=== PATIENT | male | born 1940 | race Caucasian/White ===

== ENCOUNTER 2018-11-17 14:05 | Inpatient (IN) ==
[2018-11-17] MEDS ORDERED: Mag Hydrox/Al Hydrox/Simeth 30 ML UDC PO PRN (19:59)
[2018-11-17] MEDS ORDERED: Ondansetron ODT 4 MG TAB.RAPDIS SL PRN (19:59)
[2018-11-18 06:06] LABS: Basophils % 0.4 %; Hematocrit 26.6 % (37.5-50.1); Hemoglobin 8.7 g/dL (12.9-16.9); Immature Granulocytes % 0.4 % (0-4); Lymphocytes % 31.6 %; Mean Corpuscular HGB Conc 32.7 g/dL (31.6-35.5); Mean Corpuscular Hemoglobin 31.8 pg (28.0-33.3); Mean Corpuscular Volume 97.1 fL (83.0-100.0); Mean Platelet Volume 10.5 fL (9.4-12.4); Monocytes % 6.8 %; Platelet Count 255 K/mcL (140-400); Red Blood Count 2.74 M/mcL (4.19-5.50); Red Cell Distribution Width 14.9 % (11.5-14.5); Segmented Neutrophils % 53.8 %; White Blood Count 10.1 K/mcL (4.3-11.1)
[2018-11-18 06:07] LABS: Eosinophils # 0.7 K/mcL (0.0-0.6); Lymphocytes # 3.2 K/mcL (0.6-4.6); Monocytes # 0.7 K/mcL (0.0-1.3); Neutrophils # 5.4 K/mcL (1.6-8.9)
[2018-11-18 06:14] LABS: Alanine Aminotransferase 49 Units/L (7-52); Albumin 2.8 g/dL (3.5-5.7); Albumin/Globulin Ratio 1.4 (1.1-2.2); Alkaline Phosphatase 66 Units/L (34-104); Aspartate Amino Transferase 33 Units/L (13-39); BUN/Creatinine Ratio 46 (6-26); Bilirubin,Total 0.4 mg/dL (0.3-1.0); Blood Urea Nitrogen 38 mg/dL (8-23); Calcium 8.2 mg/dL (8.6-10.3); Carbon Dioxide 28 mEq/L (23-29); Chloride 107 mEq/L (98-107); Glucose 104 mg/dL (70-105); Magnesium 1.4 mg/dL (1.6-2.6); Osmolality,Calculated 295 (280-300); Potassium 4.3 mEq/L (3.5-5.1); Sodium 138 mEq/L (136-145); Total Protein 4.8 g/dL (6.4-8.9); eGFR For African Americans > 60 (> 60); eGFR For Non-African Americans > 60 (> 60)
--- NOTE | 2018-11-18 08:40 | Internal Med History&Physical ---
Date of Encounter: 11/18/18 Time of Encounter: 08:24 Assessment and Plan (1) COPD (chronic obstructive pulmonary disease) Current visit: Yes Status: Acute Controlled with inhaled meds. Monitor. Qualifiers: COPD type: unspecified COPD Qualified Code(s): J44.9 - Chronic obstructive pulmonary disease, unspecified (2) H/O: CVA (cerebrovascular accident) Current visit: Yes Status: Chronic No new neurological deficits. Assist with ADLs as necessary. CVA was in 2011. (3) Hypothyroidism Current visit: Yes Status: Acute Controlled with levothyroxine. Monitor TSH. Qualifiers: Hypothyroidism type: unspecified Qualified Code(s): E03.9 - Hypothyroidism, unspecified (4) Severe protein-calorie malnutrition Current visit: Yes Status: Acute Consult dietitian. (5) Weakness Current visit: No Status: Acute PT and OT to eval and treat. Will follow progress. Internal Medicine - H&P: HPI Admitted From: Hospital to Hospital Transfer Plans for Post Hospital Care: Home History of present illness: Mr. Olivier is a 77 year old male admitted to inpatient rehab from [facility] in [place]. Was originally transferred from [place] emergency room to [place] for management of a K I. Has had a 3 month decline eating or drinking much and being more fatigued. was bedbound. found to be severly dehydrated. Past medical history includes COPD, CVA in 2011, hypertension, hypothyroidism, PVD, carotid stenosis, ischemic cardiomyopathy. hx of alcoholism(quit in 2011) and smoking. lives at home alone with , son unable to provide care. has had recent hospice consult. currently lying in bed, cooperative. denies fever, chills, NVD, SOB and chest pain. Past Med Surg Social Fam HX - Past Medical History Medical history: cardiomyopathy, COPD, CVA, hypertension, thyroid disease Additional medical history: hyperlipidemia. Alcoholism, quit 2011 Psychiatric history: no psych history - Past Surgical History Surgical History: carotid endarterectomy Additional surgical history: hernia surgery 1974 - Social History Smoking Status: Current every day smoker Smokeless Tobacco Status: No Alcohol use: occasionally Drug use: none - Family History Father History Unknown: Yes Name: sonia olivier Internal Medicine - H&P: Meds Albuterol Sulfate [Ventolin Hfa] 2 puff IH Q4H PRN 11/09/18 [History] Fluticasone Propionate Nasal [Flonase] 1 spray NS DAILY 11/09/18 [History] Levothyroxine Sodium [Levoxyl] 175 mcg PO QAM 11/09/18 [History] Tiotropium [Spiriva] 18 mcg IH 0700 11/09/18 [History] Acetaminophen [Tylenol] 650 mg PO Q4H PRN 11/17/18 [History] Aspirin 81 mg PO DAILY #30 tab.chew 11/17/18 [Rx] Enoxaparin [Lovenox] 40 mg SQ DAILY 11/17/18 [History] Mag Hydrox/Al Hydrox/Simeth [Maalox] 30 ml PO Q6HR PRN 11/17/18 [History] Megestrol Acetate [Megace] 40 mg PO DAILY tablet 11/17/18 [Rx] Melatonin/Pyridoxine HCl (B6) [Melatonin 3 mg Tablet] 3 mg PO HS PRN 11/17/18 [History] Ondansetron ODT [Zofran ODT] 4 mg SL Q6HR PRN 11/17/18 [History] Polyethylene Glycol 3350 [MiraLAX] 17 gm PO DAILY PRN 11/17/18 [History] Allergy/AdvReac Type Severity Reaction Status Date / Time No Known Allergies Allergy Verified 11/09/18 17:59 All Systems PM: A 10-system review of systems was performed and is negative for pertinent findings except as documented above in the HPI. - Constitutional Constitutional: no chills, no fever(s), no night sweats - EENT Eyes: no change in vision, no discharge, no pain, no photophobia Ears: no ear discharge, no ear pain, no tinnitus Nose, mouth and throat: no dysphagia, no nasal discharge, no neck pain, no sore throat - Cardiovascular Cardiovascular ROS IM: no chest pain, no diaphoresis, no dyspnea, no lightheadedness, no palpitations, no syncope - Respiratory Respiratory: no cough, no dyspnea, no wheezing, no excessive phlegm production - Gastrointestinal Gastrointestinal: no abdominal pain, no diarrhea, no hematemesis, no hematochezia, no melena, no nausea, no vomiting - Musculoskeletal Musculoskeletal ROS IM: no numbness, no tingling - Integumentary Integumentary IM: no rash, no unusual bruising - Neurological Neurological ROS: no confusion, no convulsions, no focal weakness, no numbness, no tingling, no tremor(s) - Hematologic/Lymphatic Hematologic/Lymphatic: no easy bruising - Constitutional Vitals: Temp Pulse Resp BP Pulse Ox 98.2 F 86 15 132/68 95 11/18/18 07:44 11/18/18 07:44 11/18/18 07:44 11/18/18 07:44 11/18/18 07:44 General appearance: Present: cooperative, A&O X 3, pleasant, no acute distress, answers questions appropriately - Head Head exam: Present: atraumatic, normocephalic - Eye Eye exam: Present: PERRL, conjuntiva pink, sclera anicteric Pupils: Present: PERRL - Neck Neck exam general surgery: Present: supple, trachea midline. Absent: lymphadenopathy - Respiratory Respiratory exam: Present: CTAB. Absent: accessory muscle use, rales, rhonchi, wheezes - Cardiovascular Cardiovascular exam: Present: RRR, +S1, +S2. Absent: diastolic murmur, gallop, rubs, systolic murmur - GI/Abdominal GI/Abdominal exam: Present: normal bowel sounds, soft, no peritoneal signs. Absent: distended, tenderness - Extremities Exam Extremities exam: Present: warm, radial pulses palpable and symmetrical. Absent: calf tenderness, cyanotic, pedal edema Additional comments: general weakness. - Neurological Exam Neurological exam: Present: CN II-XII intact, oriented X3, no focal deficits. Absent: pronater drift, facial droop, speech deficit - Skin Skin exam: Present: dry, intact Internal Med - H&P Results - Labs CBC & Chem 7: 11/18/18 05:25 11/18/18 05:25 Labs: Short CBC 11/18/18 Range/Units 05:25 WBC 10.1 (4.3-11.1) K/mcL Hgb 8.7 L (12.9-16.9) g/dL Hct 26.6 L (37.5-50.1) % Plt Count 255 (140-400) K/mcL Neutrophils # 5.4 (1.6-8.9) K/mcL BMP 11/18/18 05:25 Sodium 138 Potassium 4.3 Chloride 107 Carbon Dioxide 28 BUN 38 H Creatinine 0.82 Glucose 104 Calcium 8.2 L Liver Function 11/18/18 Range/Units 05:25 Total Bilirubin 0.4 (0.3-1.0) mg/dL AST 33 (13-39) Units/L ALT 49 (7-52) Units/L Alkaline Phosphatase 66 (34-104) Units/L Albumin 2.8 L (3.5-5.7) g/dL
[2018-11-18] MEDS: Aspirin 81 MG TAB.CHEW PO SCH (09:27)
[2018-11-18] MEDS: *HR* Enoxaparin 40 MG/0.4 ML SYRINGE SQ SCH (09:27)
[2018-11-18] MEDS: Fluticasone Propionate Nasal 50 MCG/SPRAY BOTTLE NS SCH (09:27)
[2018-11-18 11:31] LABS: Bilirubin,Urine Negative (Negative); Blood,Urine Trace-intact (Negative); Clarity,Urine Clear (Clear); Color,Urine Yellow (Yellow); Glucose,Urine (UA) Normal (Normal); Ketones,Urine Negative (Negative); Leukocyte Esterase,Urine Trace (Negative); Nitrite,Urine Negative (Negative); PH,Urine 8.5 pH Units (5.0-8.0); Protein,Urine Negative (Neg-Trace); Specific Gravity,Urine 1.015 (1.010-1.025); Urobilinogen,Urine Normal (Normal)
[2018-11-18 11:36] LABS: RBC,Urine 0-3 per hpf (0-3)
[2018-11-18 11:37] LABS: Bacteria,Urine Few per hpf (None-Few); WBC,Urine 0-3 per hpf (0-3)
[2018-11-18] MEDS: Tiotropium 18 MCG inhalation IH SCH (11:44)
[2018-11-19] MEDS: Aspirin 81 MG TAB.CHEW PO SCH (07:58)
[2018-11-19] MEDS: *HR* Enoxaparin 40 MG/0.4 ML SYRINGE SQ SCH (07:58)
[2018-11-19] MEDS: Fluticasone Propionate Nasal 50 MCG/SPRAY BOTTLE NS SCH (07:59)
[2018-11-19] MEDS: Tiotropium 18 MCG inhalation IH SCH (09:35)
--- NOTE | 2018-11-19 12:02 | Internal Med Progress Note ---
Date of Encounter: 11/19/18 Time of Encounter: 12:00 - Assessment and plan (1) COPD (chronic obstructive pulmonary disease) Current Visit: Yes Status: Acute Assessment and plan: No acute issues. Patient denies any dyspnea but does continue with productive cough and noted fine rales . Remains afebrile. We will continue with current medications and bronchodilators. Patient continue with therapy Qualifiers: COPD type: unspecified COPD Qualified Code(s): J44.9 - Chronic obstructive pulmonary disease, unspecified (2) Cardiomyopathy Current Visit: Yes Status: Chronic Assessment and plan: No acute issues. Patient continues with fine basilar rales, but denies any chest discomforts or palpitations. No peripheral edema noted. Denies any dyspnea during therapy. We will continue with current medications and continue with therapy Qualifiers: Cardiomyopathy type: unspecified Qualified Code(s): I42.9 - Cardiomyopathy, unspecified (3) Dementia Current Visit: Yes Status: Chronic Assessment and plan: No acute issues. Patient has been compliant with care with no behavior issues reported per nursing. Patient appears appropriate during conversation during exam. Qualifiers: Dementia type: unspecified type Dementia behavioral disturbance: without behavioral disturbance Qualified Code(s): F03.90 - Unspecified dementia without behavioral disturbance (4) Acute kidney failure Current Visit: Yes Status: Acute Assessment and plan: Patient noted to have decreased urine output per INR was. Also with hypomagnesemia with today's labs showing a 1.4. Most recent creatinine was at 0.82. Will evaluate patient for possible gentle fluid replacement with electrolytes. Monitor through serial labs Qualifiers: Acute renal failure type: with acute tubular necrosis Qualified Code(s): N17.0 - Acute kidney failure with tubular necrosis - Time Spent With Patient less than 15 minutes - Subjective Interval history: Patient appears relaxed and currently denies any discomforts or shortness of breath. Denies any chest discomforts or palpitations. Patient does state he has a cough with thick bhakta sputum been received. Patient also states that he continues to be able to feel the mass to the right side of his neck which he states he was told was benign. No lymphedema or tenderness. Patient with a history of dementia but has since her to be compliant with care and no behavior issues reported per nursing. - Constitutional Vitals: Temp Pulse Resp BP Pulse Ox 98.3 F 81 20 94/52 98 11/19/18 07:36 11/19/18 07:36 11/19/18 09:37 11/19/18 07:36 11/19/18 09:37 General appearance: Present: cooperative, A&O X 3, pleasant, no acute distress, answers questions appropriately - Head Head exam: Present: atraumatic, normocephalic - Eye Eye exam: Present: PERRL, conjuntiva pink, sclera anicteric Pupils: Present: PERRL - Neck Neck exam general surgery: Present: supple, trachea midline. Absent: lymphadenopathy - Respiratory Respiratory exam: Present: decreased breath sounds, CTAB. Absent: accessory muscle use, rales, rhonchi, wheezes Additional comments: Lungs are clear throughout upper begum with fine posterior bibasilar rales. Respiratory effort appears relaxed. Productive cough with thick bhakta sputum received. - Cardiovascular Cardiovascular exam: Present: RRR, +S1, +S2. Absent: diastolic murmur, gallop, rubs, systolic murmur - GI/Abdominal GI/Abdominal exam: Present: normal bowel sounds, soft, no peritoneal signs. Absent: distended, tenderness - Extremities Exam Extremities exam: Present: warm, radial pulses palpable and symmetrical. Absent: calf tenderness, cyanotic, pedal edema - Neurological Exam Neurological exam: Present: CN II-XII intact, oriented X3, no focal deficits. Absent: pronater drift, facial droop, speech deficit - Skin Skin exam: Present: dry, intact Internal Medicine: Result - Labs CBC & Chem 7: 11/18/18 05:25 11/18/18 05:25 Consult Discharge Plan - Plan Referrals: Lucy Vazquez [Primary Care Provider] -
[2018-11-19] MEDS: Acetaminophen 325 MG TABLET PO PRN (21:34)
[2018-11-20] MEDS: *HR* Enoxaparin 40 MG/0.4 ML SYRINGE SQ SCH (08:31)
[2018-11-20] MEDS: Aspirin 81 MG TAB.CHEW PO SCH (08:31)
[2018-11-20] MEDS: Fluticasone Propionate Nasal 50 MCG/SPRAY BOTTLE NS SCH (08:33)
[2018-11-20] MEDS: Tiotropium 18 MCG inhalation IH SCH (10:17)
--- NOTE | 2018-11-20 12:18 | Internal Med Progress Note ---
Date of Encounter: 11/20/18 Time of Encounter: 12:15 - Assessment and plan (1) COPD (chronic obstructive pulmonary disease) Current Visit: Yes Status: Acute Assessment and plan: No acute issues. Patient denies any dyspnea but does continue with productive cough and noted fine rales bibasilar. Remains afebrile. We will continue with current medications and bronchodilators. Patient continue with therapy Qualifiers: COPD type: unspecified COPD Qualified Code(s): J44.9 - Chronic obstructive pulmonary disease, unspecified (2) Cardiomyopathy Current Visit: Yes Status: Chronic Assessment and plan: No acute issues. Patient continues with fine basilar rales, but denies any chest discomforts or palpitations. No peripheral edema noted. Denies any dyspnea during therapy. We will continue with current medications and continue with therapy Qualifiers: Cardiomyopathy type: unspecified Qualified Code(s): I42.9 - Cardiomyopathy, unspecified (3) Dementia Current Visit: Yes Status: Chronic Assessment and plan: No acute issues. Patient has been compliant with care with no behavior issues reported per nursing. Patient appears appropriate during conversation during exam. Qualifiers: Dementia type: unspecified type Dementia behavioral disturbance: without be havioral disturbance Qualified Code(s): F03.90 - Unspecified dementia without behavioral disturbance (4) Acute kidney failure Current Visit: Yes Status: Acute Assessment and plan: Most recent creatinine was at 0.82. Monitor through serial labs Qualifiers: Acute renal failure type: with acute tubular necrosis Qualified Code(s): N17.0 - Acute kidney failure with tubular necrosis - Time Spent With Patient less than 15 minutes - Subjective Interval history: Patient appears relaxed and currently denies any discomforts or shortness of breath. Denies any chest discomforts or palpitations. Patient does state he has a cough with thick bhakta sputum been received. Patient also states that he continues to be able to feel the mass to the right side of his neck. Call received from oncology states that patient's mass biopsy was benign. No lymphedema or tenderness. Patient with a history of dementia, but no reports of behavior issues from nursing. - Constitutional Vitals: Temp Pulse Resp BP Pulse Ox 98.5 F 77 20 109/65 97 11/20/18 07:20 11/20/18 07:20 11/20/18 10:13 11/20/18 07:20 11/20/18 10:13 General appearance: Present: cooperative, A&O X 3, pleasant, no acute distress, answers questions appropriately - Head Head exam: Present: atraumatic, normocephalic Additional comments: Slight firmness noted to right upper neck during palpation. - Eye Eye exam: Present: PERRL, conjuntiva pink, sclera anicteric Pupils: Present: PERRL - Neck Neck exam general surgery: Present: supple, trachea midline. Absent: lymphadenopathy - Respiratory Respiratory exam: Present: decreased breath sounds, CTAB, rales. Absent: accessory muscle use, rhonchi, wheezes Additional comments: Lungs are clear throughout upper begum with fine basilar rales noted. Respiratory effort appears relaxed while at rest. No productive cough noted during exam. - Cardiovascular Cardiovascular exam: Present: RRR, +S1, +S2. Absent: diastolic murmur, gallop, rubs, systolic murmur - GI/Abdominal GI/Abdominal exam: Present: normal bowel sounds, soft, no peritoneal signs. Absent: distended, tenderness - Extremities Exam Extremities exam: Present: warm, radial pulses palpable and symmetrical. Absent: calf tenderness, cyanotic, pedal edema - Neurological Exam Neurological exam: Present: CN II-XII intact, oriented X3, no focal deficits. Absent: pronater drift, facial droop, speech deficit - Skin Skin exam: Present: dry, intact Internal Medicine: Result - Labs CBC & Chem 7: 11/18/18 05:25 11/18/18 05:25 Consult Discharge Plan - Plan Referrals: Lucy Vazquez [Primary Care Provider] -
[2018-11-20] MEDS: Acetaminophen 325 MG TABLET PO PRN (21:20)
[2018-11-20] MEDS: Melatonin 3 MG TABLET PO PRN (21:21)
[2018-11-21 04:46] LABS: Hemoglobin 8.2 g/dL (12.9-16.9); Mean Corpuscular HGB Conc 32.8 g/dL (31.6-35.5); Mean Corpuscular Hemoglobin 31.7 pg (28.0-33.3); Mean Corpuscular Volume 96.5 fL (83.0-100.0); Mean Platelet Volume 9.4 fL (9.4-12.4); Platelet Count 285 K/mcL (140-400); Red Blood Count 2.59 M/mcL (4.19-5.50); Red Cell Distribution Width 14.9 % (11.5-14.5); White Blood Count 9.5 K/mcL (4.3-11.1)
[2018-11-21 05:06] LABS: Alanine Aminotransferase 45 Units/L (7-52); Albumin 2.8 g/dL (3.5-5.7); Albumin/Globulin Ratio 1.6 (1.1-2.2); Alkaline Phosphatase 58 Units/L (34-104); Aspartate Amino Transferase 27 Units/L (13-39); BUN/Creatinine Ratio 50 (6-26); Bilirubin,Total 0.3 mg/dL (0.3-1.0); Blood Urea Nitrogen 41 mg/dL (8-23); Calcium 8.1 mg/dL (8.6-10.3); Carbon Dioxide 25 mEq/L (23-29); Chloride 108 mEq/L (98-107); Globulin 1.8 g/dL (2.4-3.5); Glucose 101 mg/dL (70-105); Magnesium 1.7 mg/dL (1.6-2.6); Osmolality,Calculated 296 (280-300); Potassium 4.5 mEq/L (3.5-5.1); Sodium 138 mEq/L (136-145); Total Protein 4.6 g/dL (6.4-8.9); eGFR For African Americans > 60 (> 60); eGFR For Non-African Americans > 60 (> 60)
[2018-11-21] MEDS: *HR* Enoxaparin 40 MG/0.4 ML SYRINGE SQ SCH (09:30)
[2018-11-21] MEDS: Aspirin 81 MG TAB.CHEW PO SCH (09:31)
[2018-11-21] MEDS: Fluticasone Propionate Nasal 50 MCG/SPRAY BOTTLE NS SCH (09:32)
[2018-11-21] MEDS: Tiotropium 18 MCG inhalation IH SCH (10:02)
--- NOTE | 2018-11-21 11:29 | Internal Med Progress Note ---
Date of Encounter: 11/21/18 Time of Encounter: 11:23 - Assessment and plan (1) COPD (chronic obstructive pulmonary disease) Current Visit: Yes Status: Acute Assessment and plan: Stable. Continue inhaled meds. Qualifiers: COPD type: unspecified COPD Qualified Code(s): J44.9 - Chronic obstructive pulmonary disease, unspecified (2) H/O: CVA (cerebrovascular accident) Current Visit: Yes Status: Chronic Assessment and plan: No new neurological deficits. (3) Severe protein-calorie malnutrition Current Visit: Yes Status: Acute (4) Weakness Current Visit: No Status: Acute - Time Spent With Patient less than 15 minutes - Subjective Interval history: Sitting in wheelchair, Participating well with therapy. Denies complaints. Denies fever, chills, nausea vomiting or diarrhea. Denies shortness of breath or chest pain. Appetite improving. Maintaining hydration. Slight redness and edema to right lower extremity. States it itches. Denies pain. - Constitutional Vitals: Temp Pulse Resp BP Pulse Ox 97.9 F 70 16 90/49 96 11/21/18 08:00 11/21/18 08:00 11/21/18 10:04 11/21/18 08:00 11/21/18 10:04 General appearance: Present: cooperative, A&O X 3, pleasant, no acute distress, answers questions appropriately - Head Head exam: Present: atraumatic, normocephalic - Eye Eye exam: Present: PERRL, conjuntiva pink, sclera anicteric Pupils: Present: PERRL - Neck Neck exam general surgery: Present: supple, trachea midline. Absent: lym phadenopathy - Respiratory Respiratory exam: Present: CTAB. Absent: accessory muscle use, rales, rhonchi, wheezes - Cardiovascular Cardiovascular exam: Present: RRR, +S1, +S2. Absent: diastolic murmur, gallop, rubs, systolic murmur - GI/Abdominal GI/Abdominal exam: Present: normal bowel sounds, soft, no peritoneal signs. Absent: distended, tenderness - Extremities Exam Extremities exam: Present: warm, radial pulses palpable and symmetrical. Absent: calf tenderness, cyanotic, pedal edema Additional comments: Right lower extremity, slight non-pitting edema with redness. No warmth to touch. - Neurological Exam Neurological exam: Present: CN II-XII intact, oriented X3, no focal deficits. Absent: pronater drift, facial droop, speech deficit - Skin Skin exam: Present: dry, intact Internal Medicine: Result - Labs CBC & Chem 7: 11/21/18 04:29 11/21/18 04:29 Labs: Short CBC 11/21/18 Range/Units 04:29 WBC 9.5 (4.3-11.1) K/mcL Hgb 8.2 L (12.9-16.9) g/dL Hct 25.0 L (37.5-50.1) % Plt Count 285 (140-400) K/mcL BMP 11/21/18 04:29 Sodium 138 Potassium 4.5 Chloride 108 H Carbon Dioxide 25 BUN 41 H Creatinine 0.82 Glucose 101 Calcium 8.1 L Liver Function 11/21/18 Range/Units 04:29 Total Bilirubin 0.3 (0.3-1.0) mg/dL AST 27 (13-39) Units/L ALT 45 (7-52) Units/L Alkaline Phosphatase 58 (34-104) Units/L Albumin 2.8 L (3.5-5.7) g/dL Consult Discharge Plan - Plan Referrals: Lucy Vazquez [Primary Care Provider] -
[2018-11-22] MEDS: Fluticasone Propionate Nasal 50 MCG/SPRAY BOTTLE NS SCH (08:52)
[2018-11-22] MEDS: *HR* Enoxaparin 40 MG/0.4 ML SYRINGE SQ SCH (08:52)
[2018-11-22] MEDS: Aspirin 81 MG TAB.CHEW PO SCH (08:52)
[2018-11-22] MEDS: Tiotropium 18 MCG inhalation IH SCH (08:55)
--- NOTE | 2018-11-22 09:41 | Internal Med Progress Note ---
Date of Encounter: 11/22/18 Time of Encounter: 09:41 - Assessment and plan (1) Weakness Current Visit: No Status: Acute Assessment and plan: Patient is slowly improving. Therapies continued. (2) Cardiomyopathy Current Visit: Yes Status: Chronic Assessment and plan: Clinically stable withacute signs of heart failure. Qualifiers: Cardiomyopathy type: unspecified Qualified Code(s): I42.9 - Cardiomyopathy, unspecified (3) Hypothyroidism Current Visit: Yes Status: Acute Assessment and plan: Clinically stable. Qualifiers: Hypothyroidism type: unspecified Qualified Code(s): E03.9 - Hypothyroidism, unspecified (4) COPD (chronic obstructive pulmonary disease) Current Visit: Yes Status: Acute Assessment and plan: No acute findings. Qualifiers: COPD type: unspecified COPD Qualified Code(s): J44.9 - Chronic obstructive pulmonary disease, unspecified (5) Dementia Current Visit: Yes Status: Chronic Assessment and plan: Seems alert and oriented 3, today. Qualifiers: Dementia type: unspecified type Dementia behavioral disturbance: without behavioral disturbance Qualified Code(s): F03.90 - Unspecified dementia without behavioral disturbance - Subjective Interval history: Patient is without complaint. He is not feeling too tired, today. Bowels are moving adequately. He continued urinate frequently. No burning or fever or chills. Patient has no complaint of chest discomfort, dyspnea, orthopnea, palpitations, nausea or vomiting, constipation or diarrhea, other changes in bowel habits, difficulty with urination, rash or itching, or other new complaints, except as mentioned above. Review of systems is otherwise negative. I discussed management of patient's care with nursing staff. - Constitutional Vitals: Temp Pulse Resp BP Pulse Ox 98.4 F 72 18 148/81 100 11/22/18 06:54 11/22/18 06:54 11/22/18 06:54 11/22/18 06:54 11/22/18 06:54 Exam: Examination: (Except as mentioned above): General: In no apparent distress. Alert and oriented 3. Nondiaphoretic. Head: Atraumatic and normocephalic. Respiratory: No use of accessory muscles. Lungs are clear throughout. Normal airflow. Cardiovascular: Regular rate and rhythm without murmur appreciated. Abdomen: Bowel sounds are normal. No hepatosplenomegaly mass or tenderness appreciated. Obese and therefore difficult to palpate deeply. Patient is examined upright in chair and this also limits exam. Extremities: No cyanosis clubbing or change in edema. Skin: Warm and non-diaphoretic with no new lesions noted. Internal Medicine: Result - Labs CBC & Chem 7: 11/21/18 04:29 11/21/18 04:29 Consult Discharge Plan - Plan Referrals: Lucy Vazquez [Primary Care Provider] - Guilherme Sheth MD [Partnered Physician] - 12/12/18 11:15 am (follow-up visit. suspects multiple myeloma)
[2018-11-22] MEDS: Melatonin 3 MG TABLET PO PRN (20:36)
[2018-11-23] MEDS: *HR* Enoxaparin 40 MG/0.4 ML SYRINGE SQ SCH (08:09)
[2018-11-23] MEDS: Aspirin 81 MG TAB.CHEW PO SCH (08:09)
[2018-11-23] MEDS: Tiotropium 18 MCG inhalation IH SCH (08:09)
[2018-11-23] MEDS: Fluticasone Propionate Nasal 50 MCG/SPRAY BOTTLE NS SCH (08:11)
--- NOTE | 2018-11-23 13:40 | Internal Med Progress Note ---
Date of Encounter: 11/23/18 Time of Encounter: 13:38 - Assessment and plan (1) Weakness Current Visit: No Status: Acute Assessment and plan: Patient will continue with therapy, as planned. (2) Cardiomyopathy Current Visit: Yes Status: Chronic Assessment and plan: No findings of heart failure. Qualifiers: Cardiomyopathy type: unspecified Qualified Code(s): I42.9 - Cardiomyopathy, unspecified (3) Hypothyroidism Current Visit: Yes Status: Acute Assessment and plan: Stable. Qualifiers: Hypothyroidism type: unspecified Qualified Code(s): E03.9 - Hypothyroidism, unspecified (4) COPD (chronic obstructive pulmonary disease) Current Visit: Yes Status: Acute Assessment and plan: Clinically stable. Qualifiers: COPD type: unspecified COPD Qualified Code(s): J44.9 - Chronic obstructive pulmonary disease, unspecified (5) Dementia Current Visit: Yes Status: Chronic Assessment and plan: This seems to be very mild. Qualifiers: Dementia type: unspecified type Dementia behavioral disturbance: without behavioral disturbance Qualified Code(s): F03.90 - Unspecified dementia without behavioral disturbance (6) Paraproteinemia Current Visit: Yes Status: Acute Assessment and plan: Follow-up is planned for 12/12/2017 with hematology. (7) Constipation by delayed colonic transit Current Visit: Yes Status: Acute Assessment and plan: We will continue laxatives and suppositories. - Subjective Interval history: Patient is feeling bloated and constipated. He denies abdominal pain or upset stomach, reflux, etc. He has not responded to laxatives and we discussed the possible use of a suppository to which he agrees. Patient has no complaint of chest discomfort, dyspnea, orthopnea, palpitations, nausea or vomiting, constipation or diarrhea, other changes in bowel habits, difficulty with urination, rash or itching, or other new complaints, except as mentioned above. Review of systems is otherwise negative. I discussed management of patient's care with nursing staff. - Constitutional Vitals: Temp Pulse Resp BP Pulse Ox 98.0 F 71 16 120/70 100 11/23/18 07:29 11/23/18 07:29 11/23/18 07:29 11/23/18 07:29 11/23/18 07:29 Exam: Examination: (Except as mentioned above): General: In no apparent distress. Alert and oriented 3. Nondiaphoretic. Head: Atraumatic and normocephalic. Respiratory: No use of accessory muscles. Lungs are clear throughout. Normal airflow. Cardiovascular: Regular rate and rhythm without murmur appreciated. Abdomen: Bowel sounds are normal. No hepatosplenomegaly mass or tenderness appreciated. Obese and therefore difficult to palpate deeply. Patient is examined upright in chair and this also limits exam. Extremities: No cyanosis clubbing or change in edema. Skin: Warm and non-diaphoretic with no new lesions noted. Internal Medicine: Result - Labs CBC & Chem 7: 11/21/18 04:29 11/21/18 04:29 Consult Discharge Plan - Plan Referrals: Lucy Vazquez [Primary Care Provider] - Guilherme Sheth MD [Partnered Physician] - 12/12/18 11:15 am (follow-up visit. suspects multiple myeloma)
[2018-11-23] MEDS ORDERED: Bisacodyl 10 MG RECTAL SUPPOSITORY RC ONE (14:50)
[2018-11-23] MEDS: Melatonin 3 MG TABLET PO PRN (20:00)
[2018-11-24] MEDS: Fluticasone Propionate Nasal 50 MCG/SPRAY BOTTLE NS SCH (09:31)
[2018-11-24] MEDS: *HR* Enoxaparin 40 MG/0.4 ML SYRINGE SQ SCH (09:32)
[2018-11-24] MEDS: Aspirin 81 MG TAB.CHEW PO SCH (09:33)
--- NOTE | 2018-11-24 09:59 | Internal Med Progress Note ---
Date of Encounter: 11/24/18 Time of Encounter: 09:57 - Assessment and plan (1) COPD (chronic obstructive pulmonary disease) Current Visit: Yes Status: Acute Assessment and plan: No acute issues. Patient denies any dyspnea but does continue with productive cough and noted fine rales bibasilar. Remains afebrile. We will continue with current medications and bronchodilators. Patient continue with therapy Qualifiers: COPD type: unspecified COPD Qualified Code(s): J44.9 - Chronic obstructive pulmonary disease, unspecified (2) Cardiomyopathy Current Visit: Yes Status: Chronic Assessment and plan: No acute issues. Patient continues with fine basilar rales, but denies any chest discomforts or palpitations. No peripheral edema noted. Denies any dyspnea during therapy. We will continue with current medications and continue with therapy Qualifiers: Cardiomyopathy type: unspecified Qualified Code(s): I42.9 - Cardiomyopathy, unspecified (3) Dementia Current Visit: Yes Status: Chronic Assessment and plan: No acute issues. Patient has been compliant with care with no behavior issues reported per nursing. Patient appears appropriate during conversation during exam. Continued reports of nocturnal confusion, but no behavior issues reported Qualifiers: Dementia type: unspecified type Dementia behavioral disturbance: without behavioral disturbance Qualified Code(s): F03.90 - Unspecified dementia without behavioral disturbance (4) Acute kidney failure Current Visit: Yes Status: Acute Assessment and plan: Most recent creatinine was at 0.82. Monitor through serial labs Qualifiers: Acute renal failure type: with acute tubular necrosis Qualified Code(s): N17.0 - Acute kidney failure with tubular necrosis - Time Spent With Patient less than 15 minutes - Subjective Interval history: Patient appears relaxed and currently denies any discomforts or shortness of breath. Denies any chest discomforts or palpitations. Patient with a history of dementia, but no reports of behavior issues from nursing. Nursing states the patient at times has awakened confused at night, but easily redirected - Constitutional Vitals: Temp Pulse Resp BP Pulse Ox 98.3 F 73 16 127/66 98 11/24/18 07:00 11/24/18 07:00 11/24/18 07:00 11/24/18 07:00 11/24/18 07:00 General appearance: Present: cooperative, A&O X 3, pleasant, no acute distress, answers questions appropriately - Head Head exam: Present: atraumatic, normocephalic - Eye Eye exam: Present: PERRL, conjuntiva pink, sclera anicteric Pupils: Present: PERRL - Neck Neck exam general surgery: Present: supple, trachea midline. Absent: lymphadenopathy - Respiratory Respiratory exam: Present: decreased breath sounds, CTAB. Absent: accessory muscle use, rales, rhonchi, wheezes - Cardiovascular Cardiovascular exam: Present: RRR, +S1, +S2, systolic murmur. Absent: diastolic murmur, gallop, rubs - GI/Abdominal GI/Abdominal exam: Present: normal bowel sounds, soft, no peritoneal signs. Absent: distended, tenderness - Extremities Exam Extremities exam: Present: pedal edema, warm, radial pulses palpable and symmetrical. Absent: calf tenderness, cyanotic - Neurological Exam Neurological exam: Present: CN II-XII intact, oriented X3, no focal deficits. Absent: pronater drift, facial droop, speech deficit - Skin Skin exam: Present: dry, intact Internal Medicine: Result - Labs CBC & Chem 7: 11/21/18 04:29 11/21/18 04:29 Consult Discharge Plan - Plan Referrals: Lucy Vazquez [Primary Care Provider] - Guilherme Sheth MD [Partnered Physician] - 12/12/18 11:15 am (follow-up visit. suspects multiple myeloma)
[2018-11-24] MEDS: Tiotropium 18 MCG inhalation IH SCH (10:59)
[2018-11-25] MEDS: Aspirin 81 MG TAB.CHEW PO SCH (09:35)
[2018-11-25] MEDS: Fluticasone Propionate Nasal 50 MCG/SPRAY BOTTLE NS SCH (09:35)
[2018-11-25] MEDS: *HR* Enoxaparin 40 MG/0.4 ML SYRINGE SQ SCH (09:35)
[2018-11-25] MEDS: Tiotropium 18 MCG inhalation IH SCH (09:36)
--- NOTE | 2018-11-25 10:04 | Internal Med Progress Note ---
Date of Encounter: 11/25/18 Time of Encounter: 10:02 - Assessment and plan (1) COPD (chronic obstructive pulmonary disease) Current Visit: Yes Status: Acute Assessment and plan: Stable. Continue inhaled meds. Qualifiers: COPD type: unspecified COPD Qualified Code(s): J44.9 - Chronic obstructive pulmonary disease, unspecified (2) H/O: CVA (cerebrovascular accident) Current Visit: Yes Status: Chronic Assessment and plan: No new neurological deficits. (3) Severe protein-calorie malnutrition Current Visit: Yes Status: Acute Assessment and plan: Appetite improving. (4) Weakness Current Visit: Yes Status: Acute Assessment and plan: Continue PT and OT. Will follow progress. - Time Spent With Patient less than 15 minutes - Subjective Interval history: Sitting in chair, Participating well with therapy. Denies complaints. Denies fever, chills, nausea vomiting or diarrhea. Denies shortness of breath or chest pain. Appetite improving. Maintaining hydration. - Constitutional Vitals: Temp Pulse Resp BP Pulse Ox 98.5 F 74 18 104/73 100 11/25/18 07:00 11/25/18 07:00 11/25/18 07:00 11/25/18 07:00 11/25/18 07:00 General appearance: Present: cooperative, A&O X 3, pleasant, no acute distress, answers questions appropriately - Head Head exam: Present: atraumatic, normocephalic - Eye Eye exam: Present: PERRL, conjuntiva pink, sclera anicteric Pupils: Present: PERRL - Neck Neck exam general surgery: Present: supple, trachea midline. Absent: lymphadenopathy - Respiratory Respiratory exam: Present: CTAB. Absent: accessory muscle use, rales, rhonchi, wheezes - Cardiovascular Cardiovascular exam: Present: RRR, +S1, +S2. Absent: diastolic murmur, gallop, rubs, systolic murmur - GI/Abdominal GI/Abdominal exam: Present: normal bowel sounds, soft, no peritoneal signs. Absent: distended, tenderness - Extremities Exam Extremities exam: Present: warm, radial pulses palpable and symmetrical. Absent: calf tenderness, cyanotic, pedal edema Additional comments: Non-pitting edema bilateral lower extremities. - Neurological Exam Neurological exam: Present: CN II-XII intact, oriented X3, no focal deficits. Absent: pronater drift, facial droop, speech deficit - Skin Skin exam: Present: dry, intact Internal Medicine: Result - Labs CBC & Chem 7: 11/21/18 04:29 11/21/18 04:29 Consult Discharge Plan - Plan Referrals: Lucy Vazquez [Primary Care Provider] - Guilherme Sheth MD [Partnered Physician] - 12/12/18 11:15 am (follow-up visit. suspects multiple myeloma)
[2018-11-26] MEDS: Fluticasone Propionate Nasal 50 MCG/SPRAY BOTTLE NS SCH (08:15)
[2018-11-26] MEDS: *HR* Enoxaparin 40 MG/0.4 ML SYRINGE SQ SCH (08:16)
[2018-11-26] MEDS: Aspirin 81 MG TAB.CHEW PO SCH (08:16)
--- NOTE | 2018-11-26 08:20 | Internal Med Progress Note ---
Date of Encounter: 11/26/18 Time of Encounter: 08:19 - Assessment and plan (1) Weakness Current Visit: Yes Status: Acute Assessment and plan: He is making progress. (2) Cardiomyopathy Current Visit: Yes Status: Chronic Assessment and plan: No current signs of heart failure. Qualifiers: Cardiomyopathy type: unspecified Qualified Code(s): I42.9 - Cardiomyopathy, unspecified (3) Hypothyroidism Current Visit: Yes Status: Acute Assessment and plan: We will continue on current supplementation. Qualifiers: Hypothyroidism type: unspecified Qualified Code(s): E03.9 - Hypothyroidism, unspecified (4) COPD (chronic obstructive pulmonary disease) Current Visit: Yes Status: Acute Assessment and plan: Clinically stable. Qualifiers: COPD type: unspecified COPD Qualified Code(s): J44.9 - Chronic obstructive pulmonary disease, unspecified (5) Dementia Current Visit: Yes Status: Chronic Assessment and plan: He shows signs of this at night but otherwise is of clear thought and responsiveness. Qualifiers: Dementia type: unspecified type Dementia behavioral disturbance: without behavioral disturbance Qualified Code(s): F03.90 - Unspecified dementia without behavioral disturbance (6) Paraproteinemia Current Visit: Yes Status: Acute Assessment and plan: Hematology workup to progress December 12. (7) Constipation by delayed colonic transit Current Visit: Yes Status: Acute Assessment and plan: Improved. - Subjective Interval history: Patient feels like he is growing stronger. He is participating well with therapy. Discussed his discharge soon and he again wants to go home as soon as possible. Apparently, his is still suffering from illness. Patient has no complaint of chest discomfort, dyspnea, orthopnea, palpitations, nausea or vomiting, constipation or diarrhea, other changes in bowel habits, difficulty with urination, rash or itching, or other new complaints, except as mentioned above. Review of systems is otherwise negative. I discussed management of patient's care with nursing staff. - Constitutional Vitals: Temp Pulse Resp BP Pulse Ox 98.5 F 74 16 154/64 98 11/26/18 07:00 11/26/18 07:00 11/26/18 07:00 11/26/18 07:00 11/26/18 07:00 Exam: General: In no apparent distress. Alert and oriented 3. Nondiaphoretic. Head: Atraumatic and normocephalic. Respiratory: No use of accessory muscles. Lungs are clear throughout. Normal airflow. Cardiovascular: Regular rate and rhythm without murmur appreciated. Abdomen: Bowel sounds are normal. No hepatosplenomegaly mass or tenderness appreciated. Obese and therefore difficult to palpate deeply. Patient is examined upright in chair and this also limits exam. Extremities: No cyanosis clubbing or edema. Skin: Warm and non-diaphoretic with no new lesions noted. Internal Medicine: Result - Labs CBC & Chem 7: 11/21/18 04:29 11/21/18 04:29 Consult Discharge Plan - Plan Referrals: Lucy Vazquez [Primary Care Provider] - Guilherme Sheth MD [Partnered Physician] - 12/12/18 11:15 am (follow-up visit. suspects multiple myeloma)
[2018-11-26] MEDS: Tiotropium 18 MCG inhalation IH SCH (11:18)
[2018-11-26] MEDS: Melatonin 3 MG TABLET PO PRN (22:19)
[2018-11-26] MEDS: Acetaminophen 325 MG TABLET PO PRN (23:21)
[2018-11-27] MEDS: Acetaminophen 325 MG TABLET PO PRN (03:18)
[2018-11-27] MEDS: Aspirin 81 MG TAB.CHEW PO SCH (08:57)
[2018-11-27] MEDS: *HR* Enoxaparin 40 MG/0.4 ML SYRINGE SQ SCH (08:57)
[2018-11-27] MEDS: Fluticasone Propionate Nasal 50 MCG/SPRAY BOTTLE NS SCH (08:58)
--- NOTE | 2018-11-27 10:15 | Internal Med Progress Note ---
Date of Encounter: 11/27/18 Time of Encounter: 10:13 - Assessment and plan (1) COPD (chronic obstructive pulmonary disease) Current Visit: Yes Status: Acute Assessment and plan: No acute issues. Patient denies any dyspnea but does continue with productive cough and noted diminished breath sounds bibasilar. Remains afebrile. We will continue with current medications and bronchodilators. Patient continue with therapy Qualifiers: COPD type: unspecified COPD Qualified Code(s): J44.9 - Chronic obstructive pulmonary disease, unspecified (2) Cardiomyopathy Current Visit: Yes Status: Chronic Assessment and plan: No acute issues. Patient continues with fine basilar rales, but denies any chest discomforts or palpitations. +2 pedal edema noted. Patient was slight increase with daily weights.. Denies any dyspnea during therapy. We will review current medications and continue with therapy Qualifiers: Cardiomyopathy type: unspecified Qualified Code(s): I42.9 - Cardiomyopathy, unspecified (3) Dementia Current Visit: Yes Status: Chronic Assessment and plan: No acute issues. Patient has been compliant with care with no behavior issues reported per nursing. Patient appears appropriate during conversation during exam. Continued reports of nocturnal confusion, but no behavior issues reported Qualifiers: Dementia type: unspecified type Dementia behavioral disturbance: without behavioral disturbance Qualified Code(s): F03.90 - Unspecified dementia without behavioral disturbance - Time Spent With Patient less than 15 minutes - Subjective Interval history: Patient appears relaxed and currently denies any discomforts or shortness of breath. Denies any chest discomforts or palpitations. Patient with a history of dementia, but no reports of behavior issues from nursing. - Constitutional Vitals: Temp Pulse Resp BP Pulse Ox 97.6 F 91 16 161/80 98 11/27/18 07:00 11/27/18 07:00 11/27/18 07:00 11/27/18 07:00 11/27/18 07:00 General appearance: Present: cooperative, A&O X 3, pleasant, no acute distress, answers questions appropriately - Head Head exam: Present: atraumatic, normocephalic - Eye Eye exam: Present: PERRL, conjuntiva pink, sclera anicteric Pupils: Present: PERRL - Neck Neck exam general surgery: Present: supple, trachea midline. Absent: lymphadenopathy - Respiratory Respiratory exam: Present: decreased breath sounds, CTAB. Absent: accessory muscle use, rales, rhonchi, wheezes Additional comments: Multiple clear throughout upper begum with diminished breath sounds basilar. Respiratory effort appears relaxed. Patient denies productive cough - Cardiovascular Cardiovascular exam: Present: RRR, +S1, +S2. Absent: diastolic murmur, gallop, rubs, systolic murmur - GI/Abdominal GI/Abdominal exam: Present: normal bowel sounds, soft, no peritoneal signs. Absent: distended, tenderness - Extremities Exam Extremities exam: Present: pedal edema, warm, radial pulses palpable and symmetrical. Absent: calf tenderness, cyanotic Additional comments: Patient with +2 edema to bilateral feet and ankles. - Neurological Exam Neurological exam: Present: CN II-XII intact, oriented X3, no focal deficits. Absent: pronater drift, facial droop, speech deficit - Skin Skin exam: Present: dry, intact Internal Medicine: Result - Labs CBC & Chem 7: 11/21/18 04:29 11/21/18 04:29 Consult Discharge Plan - Plan Referrals: Lucy Vazquez [Primary Care Provider] - Guilherme Sheth MD [Partnered Physician] - 12/12/18 11:15 am (follow-up visit. suspects multiple myeloma)
[2018-11-27] MEDS: Tiotropium 18 MCG inhalation IH SCH (11:34)
[2018-11-28 07:39] VITALS: BP 127/75
--- NOTE | 2018-11-28 09:32 | Physician Discharge Referral ---
Home Health/Hosp Referral Info Transfer to: Home Health Provider in Charge Post Discharge: PCP - Diagnosis (1) COPD (chronic obstructive pulmonary disease) Priority: Secondary Status: Acute (2) H/O: CVA (cerebrovascular accident) Priority: Secondary Status: Chronic (3) Severe protein-calorie malnutrition Priority: Secondary Status: Acute (4) Weakness Priority: Primary Status: Acute - Respiratory Orders Smoking Cessation: Smoking cessation has been advised. For more information, call the [place] Tobacco Quit Line at 8-608-VBOT-NOW. - Diet/Nutrition Diet/Nutrition Orders: Mechanical Soft, Renal - Activity Activity Orders: Ambulate - Services Needed Following services are medically necessary services: Nursing, Physical Therapy - Transfer Medications Home Medications: Albuterol Sulfate [Ventolin Hfa] 2 puff IH Q4H PRN 11/09/18 [History] Fluticasone Propionate Nasal [Flonase] 1 spray NS DAILY 11/09/18 [History] Levothyroxine Sodium [Levoxyl] 175 mcg PO QAM 11/09/18 [History] Tiotropium [Spiriva] 18 mcg IH 0700 11/09/18 [History] Acetaminophen [Tylenol] 650 mg PO Q4H PRN 11/17/18 [History] Aspirin 81 mg PO DAILY #30 tab.chew 11/17/18 [Rx] Enoxaparin [Lovenox] 40 mg SQ DAILY 11/17/18 [History] Mag Hydrox/Al Hydrox/Simeth [Maalox] 30 ml PO Q6HR PRN 11/17/18 [History] Megestrol Acetate [Megace] 40 mg PO DAILY tablet 11/17/18 [Rx] Melatonin/Pyridoxine HCl (B6) [Melatonin 3 mg Tablet] 3 mg PO HS PRN 11/17/18 [History] Ondansetron ODT [Zofran ODT] 4 mg SL Q6HR PRN 11/17/18 [History] Polyethylene Glycol 3350 [MiraLAX] 17 gm PO DAILY PRN 11/17/18 [History] Allergies/Adverse Reactions: Allergy/AdvReac Type Severity Reaction Status Date / Time No Known Allergies Allergy Verified 11/09/18 17:59 Certification: Further, I certify that my clinical findings support that this patient is homebound (i.e. absences from home require considerable and taxing effort and are for medical reasons or faith services or infrequently or short duration when for other reasons) because: Homebound Reason: Patient requires assistance of a person or device to safely leave home, Leaving home requires considerable and taxing effort due to condition Attestation: My signature below is to certify that this patient is under my care and that I, or nurse practitioner, or a physician's assistant professor of mathematics working with me, has a [id number] encounter with this patient.
--- NOTE | 2018-11-28 09:36 | Discharge Summary ---
Date of Encounter: 11/28/18 Time of Encounter: 09:34 - Discharge Diagnosis (1) COPD (chronic obstructive pulmonary disease) Priority: Secondary Status: Acute Comments: Continue current medication. Follow up with PCP. Qualifiers: COPD type: unspecified COPD Qualified Code(s): J44.9 - Chronic obstructive pulmonary disease, unspecified (2) H/O: CVA (cerebrovascular accident) Priority: Secondary Status: Chronic Comments: No new neurological deficits. (3) Severe protein-calorie malnutrition Priority: Secondary Status: Acute Comments: Follow up with PCP. (4) Weakness Priority: Primary Status: Acute Comments: Discharge to home with home health PT and nursing. Hospital course: Mr. Olivier is a 77 year old male discharging to home. was admitted to inpatient rehab unit after reports of not doing well for the past 3 months after becoming dehydrated and very deconditioned. There, he was found to have a lump in his jaw which they stuck a needle in, did some other tests and is now here so we can get stronger and back on his feet. He states that he knows his protein is low and he is taking his Ensure as instructed. Review of that admission shows that he has apparent proteinemia but no definite plan for workup by oncology as in the documentation. He was also found to be anemic and has unremarkable iron studies with a can no plan for workup. He was counseled by hospice but family declined. PEG tube placement was considered and family again declined. He was made a DNR [facility]. He was felt to have prerenal insufficiency and IV hydration improved his renal function. He was begun on Ensure with each meal. states he is ready to go home, denies fever, chills, NVD, chest pain or SOB. Will continue home health PT and nursing. Instructed to follow up with PCP in 1 week. Discharge discussed with: patient, family, nurse, social work - Time Spent with Patient Total time spent providing and/or coordinating discharge services: Time spent: Less than 30 minutes - Discharge Medications Prescriptions: No Action Megestrol Acetate [Megace] 40 mg PO DAILY tablet Aspirin 81 mg PO DAILY #30 tab.chew Levothyroxine Sodium [Levoxyl] 175 mcg PO QAM Tiotropium [Spiriva] 18 mcg IH 0700 Fluticasone Propionate Nasal [Flonase] 1 spray NS DAILY Albuterol Sulfate [Ventolin Hfa] 2 puff IH Q4H PRN PRN Reason: Shortness Of Breath Enoxaparin [Lovenox] 40 mg SQ DAILY Melatonin/Pyridoxine HCl (B6) [Melatonin 3 mg Tablet] 3 mg PO HS PRN PRN Reason: Insomnia Mag Hydrox/Al Hydrox/Simeth [Maalox] 30 ml PO Q6HR PRN PRN Reason: Indigestion Acetaminophen [Tylenol] 650 mg PO Q4H PRN PRN Reason: pain/fever Polyethylene Glycol 3350 [MiraLAX] 17 gm PO DAILY PRN PRN Reason: Constipation Ondansetron ODT [Zofran ODT] 4 mg SL Q6HR PRN PRN Reason: Nausea Home Medications: Albuterol Sulfate [Ventolin Hfa] 2 puff IH Q4H PRN 11/09/18 [History] Fluticasone Propionate Nasal [Flonase] 1 spray NS DAILY 11/09/18 [History] Levothyroxine Sodium [Levoxyl] 175 mcg PO QAM 11/09/18 [History] Tiotropium [Spiriva] 18 mcg IH 0700 11/09/18 [History] Acetaminophen [Tylenol] 650 mg PO Q4H PRN 11/17/18 [History] Aspirin 81 mg PO DAILY #30 tab.chew 11/17/18 [Rx] Megestrol Acetate [Megace] 40 mg PO DAILY tablet 11/17/18 [Rx] Melatonin/Pyridoxine HCl (B6) [Melatonin 3 mg Tablet] 3 mg PO HS PRN 11/17/18 [History] Allergies/Adverse Reactions: Allergy/AdvReac Type Severity Reaction Status Date / Time No Known Allergies Allergy Verified 11/09/18 17:59 Date of admission: 11/17/18 19:21 Primary care physician: Lucy Vazquez Consults: 11/17/18 19:52 Consult to Nutrition [CONS] Routine Comment: poor intake Consulting Provider: NUTRITION Reason for Dietary Consult: Other Other:: poor intake Consult to Occupational Therapy [CONS] Routine Comment: eval and treat Reason for Consult: acute renal failure, increased dementia Does patient have active BEDREST order?: No Is patient medically & hemodynamically stable?: Yes Patient assessed for mobility or mobilized this visit?: No Consult to Physical Therapy [CONS] Routine Comment: eval and treat Reason for Consult: acute renal failure, increased dementia Does patient have active BEDREST order?: No Is patient medically & hemodynamically stable?: Yes Patient assessed for mobility or mobilized this visit?: No Consult to Recreational Therapy [CONS] Routine Comment: Consult to Associate Project Manager [CONS] Routine Reason for SW Consult: eval and treat: acute renal failure, poor po intake, increased dementia 11/17/18 19:58 Consult to Recreational Therapy [CONS] Routine Comment: eval and treat 11/17/18 19:59 Consult to Physical Medicine/Rehab [CONS] Routine Reason for Consult: Please evaluate and manage therapies' guidelines and recommend pathway to reconditioning. Call Completed: No Discharging clinician: Ivan Pryor Anticipated date of discharge: 11/28/18 - Constitutional Vitals: Temp Pulse Resp BP Pulse Ox 98.9 F 79 14 127/75 97 11/28/18 07:00 11/28/18 07:00 11/28/18 07:00 11/28/18 07:00 11/28/18 07:00 General appearance: Present: cooperative, A&O X 3, pleasant, no acute distress, answers questions appropriately - Head Head exam: Present: atraumatic, normocephalic - Eye Eye exam: Present: PERRL, conjuntiva pink, sclera anicteric Pupils: Present: PERRL - Neck Neck exam general surgery: Present: supple, trachea midline. Absent: lymphadenopathy - Respiratory Respiratory exam: Present: CTAB. Absent: accessory muscle use, rales, rhonchi, wheezes - Cardiovascular Cardiovascular exam: Present: RRR, +S1, +S2. Absent: diastolic murmur, gallop, rubs, systolic murmur - GI/Abdominal GI/Abdominal exam: Present: normal bowel sounds, soft, no peritoneal signs. Absent: distended, tenderness - Extremities Exam Extremities exam: Present: warm, radial pulses palpable and symmetrical. Absent: calf tenderness, cyanotic, pedal edema - Neurological Exam Neurological exam: Present: CN II-XII intact, oriented X3, no focal deficits. Absent: pronater drift, facial droop, speech deficit - Skin Skin exam: Present: dry, intact - Patient Status Disposition: Home Health Service Condition: Fair Functional capacity at discharge: uses cane/walker Overall status at discharge: patient is progressing back to baseline - Discharge Instructions Follow Up With: Lucy Vazquez [Primary Care Provider] - Guilherme Sheth MD [Partnered Physician] - 12/12/18 11:15 am (follow-up visit. suspects multiple myeloma) - Diet and Activity Activity: as per physical therapy Diet: other
[2018-11-28] MEDS: Tiotropium 18 MCG inhalation IH SCH (10:23)
[2018-11-28] MEDS: *HR* Enoxaparin 40 MG/0.4 ML SYRINGE SQ SCH (10:40)
[2018-11-28] MEDS: Aspirin 81 MG TAB.CHEW PO SCH (10:40)
[2018-11-28] MEDS: Fluticasone Propionate Nasal 50 MCG/SPRAY BOTTLE NS SCH (10:41)
== END 2018-11-28 16:01 | disposition home health service (06) | DRG 682 ==
LOC: INPGRE 19:21

== ENCOUNTER 2020-08-30 15:22 | Inpatient (IN) ==
[2020-08-30] MEDS: hydrALAZINE 25 MG TABLET PO SCH (21:23)
[2020-08-31 04:57] LABS: Basophils # 0.1 K/mcL (0.0-0.2); Basophils % 0.9 %; Eosinophils % 7.1 %; Hematocrit 39.7 % (37.5-50.1); Hemoglobin 13.1 g/dL (12.9-16.9); Immature Granulocytes % 1.2 % (0-4); Lymphocytes # 3.5 K/mcL (0.6-4.6); Lymphocytes % 25.5 %; Mean Corpuscular Hemoglobin 31.3 pg (28.0-33.3); Mean Platelet Volume 9.6 fL (9.4-12.4); Monocytes # 1.1 K/mcL (0.0-1.3); Monocytes % 7.9 %; Neutrophils # 7.9 K/mcL (1.6-8.9); Platelet Count 336 K/mcL (140-400); Red Blood Count 4.18 M/mcL (4.19-5.50); Red Cell Distribution Width 14.9 % (11.5-14.5); Segmented Neutrophils % 57.4 %; White Blood Count 13.8 K/mcL (4.3-11.1)
[2020-08-31 05:12] LABS: Alanine Aminotransferase 44 Units/L (7-52); Albumin 2.8 g/dL (3.5-5.7); Albumin/Globulin Ratio 1.1 (1.1-2.2); Alkaline Phosphatase 98 Units/L (34-104); Aspartate Amino Transferase 41 Units/L (13-39); BUN/Creatinine Ratio 42 (6-26); Bilirubin,Total 0.4 mg/dL (0.3-1.0); Blood Urea Nitrogen 36 mg/dL (8-23); Calcium 8.5 mg/dL (8.6-10.3); Carbon Dioxide 30 mEq/L (23-29); Chloride 107 mEq/L (98-107); Globulin 2.6 g/dL (2.4-3.5); Glucose 102 mg/dL (70-105); Magnesium 2.3 mg/dL (1.6-2.6); Osmolality,Calculated 303 (280-300); Potassium 4.4 mEq/L (3.5-5.1); Sodium 142 mEq/L (136-145); Total Protein 5.4 g/dL (6.4-8.9); eGFR For African Americans > 60 (> 60); eGFR For Non-African Americans > 60 (> 60)
[2020-08-31] MEDS: *HR* Enoxaparin 40 MG/0.4 ML SYRINGE SQ SCH (05:27)
[2020-08-31] MEDS: Furosemide 40 MG TABLET PO SCH (08:32)
[2020-08-31] MEDS: Multivit/Ca/Min/Fe/FA 1 TAB TABLET PO SCH (08:32)
[2020-08-31] MEDS: Cholecalciferol (D-3) 1,000 UNIT (25MCG) TABLET PO SCH (08:33)
[2020-08-31] MEDS: Aspirin 325 MG TABLET PO SCH (08:33)
[2020-08-31] MEDS: hydrALAZINE 25 MG TABLET PO SCH ×3 (08:33→21:06)
[2020-09-01] MEDS: *HR* Enoxaparin 40 MG/0.4 ML SYRINGE SQ SCH (05:26)
[2020-09-01] MEDS: Aspirin 325 MG TABLET PO SCH (08:21)
[2020-09-01] MEDS: Cholecalciferol (D-3) 1,000 UNIT (25MCG) TABLET PO SCH (08:21)
[2020-09-01] MEDS: hydrALAZINE 25 MG TABLET PO SCH ×3 (08:22→20:29)
[2020-09-01] MEDS: Furosemide 40 MG TABLET PO SCH (08:22)
[2020-09-01] MEDS: Multivit/Ca/Min/Fe/FA 1 TAB TABLET PO SCH (08:22)
[2020-09-02 05:20] LABS: Hematocrit 36.2 % (37.5-50.1); Hemoglobin 11.7 g/dL (12.9-16.9); Mean Corpuscular HGB Conc 32.3 g/dL (31.6-35.5); Mean Corpuscular Hemoglobin 30.9 pg (28.0-33.3); Mean Corpuscular Volume 95.5 fL (83.0-100.0); Mean Platelet Volume 9.5 fL (9.4-12.4); Platelet Count 338 K/mcL (140-400); Red Blood Count 3.79 M/mcL (4.19-5.50); Red Cell Distribution Width 14.7 % (11.5-14.5); White Blood Count 13.1 K/mcL (4.3-11.1)
[2020-09-02 05:37] LABS: BUN/Creatinine Ratio 39 (6-26); Blood Urea Nitrogen 30 mg/dL (8-23); Calcium 8.6 mg/dL (8.6-10.3); Carbon Dioxide 29 mEq/L (23-29); Chloride 108 mEq/L (98-107); Glucose 108 mg/dL (70-105); Magnesium 2.1 mg/dL (1.6-2.6); Osmolality,Calculated 299 (280-300); Potassium 3.8 mEq/L (3.5-5.1); Sodium 141 mEq/L (136-145); eGFR For African Americans > 60 (> 60); eGFR For Non-African Americans > 60 (> 60)
[2020-09-02] MEDS: *HR* Enoxaparin 40 MG/0.4 ML SYRINGE SQ SCH (06:37)
[2020-09-02] MEDS: Multivit/Ca/Min/Fe/FA 1 TAB TABLET PO SCH (08:33)
[2020-09-02] MEDS: hydrALAZINE 25 MG TABLET PO SCH ×3 (08:33→20:09)
[2020-09-02] MEDS: Aspirin 325 MG TABLET PO SCH (08:34)
[2020-09-02] MEDS: Cholecalciferol (D-3) 1,000 UNIT (25MCG) TABLET PO SCH (08:34)
[2020-09-02] MEDS: Furosemide 40 MG TABLET PO SCH (08:34)
[2020-09-02] MEDS: Acetaminophen 325 MG TABLET PO PRN (22:38)
[2020-09-03] MEDS: *HR* Enoxaparin 40 MG/0.4 ML SYRINGE SQ SCH (04:17)
[2020-09-03] MEDS: hydrALAZINE 25 MG TABLET PO SCH ×3 (08:47→21:30)
[2020-09-03] MEDS: Aspirin 325 MG TABLET PO SCH (08:48)
[2020-09-03] MEDS: Cholecalciferol (D-3) 1,000 UNIT (25MCG) TABLET PO SCH (08:48)
[2020-09-03] MEDS: Multivit/Ca/Min/Fe/FA 1 TAB TABLET PO SCH (08:48)
[2020-09-03] MEDS: Furosemide 40 MG TABLET PO SCH (08:48)
[2020-09-03] MEDS: Acetaminophen 325 MG TABLET PO PRN (21:30)
[2020-09-04] MEDS: *HR* Enoxaparin 40 MG/0.4 ML SYRINGE SQ SCH (06:50)
[2020-09-04] MEDS: Multivit/Ca/Min/Fe/FA 1 TAB TABLET PO SCH (08:43)
[2020-09-04] MEDS: Cholecalciferol (D-3) 1,000 UNIT (25MCG) TABLET PO SCH (08:43)
[2020-09-04] MEDS: Furosemide 40 MG TABLET PO SCH (08:43)
[2020-09-04] MEDS: Aspirin 325 MG TABLET PO SCH (08:44)
[2020-09-04] MEDS: hydrALAZINE 25 MG TABLET PO SCH ×3 (08:44→21:30)
[2020-09-04] MEDS: Acetaminophen 325 MG TABLET PO PRN (21:27)
[2020-09-05] MEDS: *HR* Enoxaparin 40 MG/0.4 ML SYRINGE SQ SCH (04:46)
[2020-09-05] MEDS: Multivit/Ca/Min/Fe/FA 1 TAB TABLET PO SCH (08:55)
[2020-09-05] MEDS: Cholecalciferol (D-3) 1,000 UNIT (25MCG) TABLET PO SCH (08:55)
[2020-09-05] MEDS: hydrALAZINE 25 MG TABLET PO SCH ×3 (08:56→21:50)
[2020-09-05] MEDS: Furosemide 40 MG TABLET PO SCH (08:57)
[2020-09-05] MEDS: Aspirin 325 MG TABLET PO SCH (08:57)
[2020-09-05] MEDS: Acetaminophen 325 MG TABLET PO PRN (21:47)
[2020-09-06] MEDS: *HR* Enoxaparin 40 MG/0.4 ML SYRINGE SQ SCH (04:46)
[2020-09-06 04:51] LABS: Hematocrit 33.1 % (37.5-50.1); Hemoglobin 10.7 g/dL (12.9-16.9); Mean Corpuscular HGB Conc 32.3 g/dL (31.6-35.5); Mean Corpuscular Hemoglobin 30.8 pg (28.0-33.3); Mean Corpuscular Volume 95.4 fL (83.0-100.0); Mean Platelet Volume 9.4 fL (9.4-12.4); Platelet Count 392 K/mcL (140-400); Red Blood Count 3.47 M/mcL (4.19-5.50); Red Cell Distribution Width 14.5 % (11.5-14.5); White Blood Count 14.6 K/mcL (4.3-11.1)
[2020-09-06 05:06] LABS: BUN/Creatinine Ratio 41 (6-26); Blood Urea Nitrogen 32 mg/dL (8-23); Calcium 8.4 mg/dL (8.6-10.3); Carbon Dioxide 28 mEq/L (23-29); Chloride 109 mEq/L (98-107); Glucose 107 mg/dL (70-105); Osmolality,Calculated 301 (280-300); Potassium 3.9 mEq/L (3.5-5.1); Sodium 142 mEq/L (136-145); eGFR For African Americans > 60 (> 60); eGFR For Non-African Americans > 60 (> 60)
[2020-09-06] MEDS: Cholecalciferol (D-3) 1,000 UNIT (25MCG) TABLET PO SCH (08:32)
[2020-09-06] MEDS: Multivit/Ca/Min/Fe/FA 1 TAB TABLET PO SCH (08:32)
[2020-09-06] MEDS: hydrALAZINE 25 MG TABLET PO SCH (08:33)
[2020-09-06] MEDS: Aspirin 325 MG TABLET PO SCH (08:33)
[2020-09-06] MEDS: Furosemide 40 MG TABLET PO SCH (08:33)
[2020-09-06 09:26] LABS: C-Reactive Protein 36 mg/L (Less than 10)
[2020-09-06] MEDS ORDERED: Furosemide 40 MG TABLET PO ONE (16:00)
[2020-09-06] MEDS: hydrALAZINE 10 MG TABLET PO SCH ×2 (16:43→20:32)
[2020-09-06] MEDS: Acetaminophen 325 MG TABLET PO PRN (20:33)
[2020-09-07] MEDS: *HR* Enoxaparin 40 MG/0.4 ML SYRINGE SQ SCH (05:22)
[2020-09-07] MEDS: Aspirin 325 MG TABLET PO SCH (08:31)
[2020-09-07] MEDS: Cholecalciferol (D-3) 1,000 UNIT (25MCG) TABLET PO SCH (08:31)
[2020-09-07] MEDS: Furosemide 40 MG TABLET PO SCH (08:32)
[2020-09-07] MEDS: hydrALAZINE 10 MG TABLET PO SCH ×3 (08:32→19:50)
[2020-09-07] MEDS: Multivit/Ca/Min/Fe/FA 1 TAB TABLET PO SCH (08:32)
[2020-09-07] MEDS: Acetaminophen 325 MG TABLET PO PRN (19:49)
[2020-09-08] MEDS: *HR* Enoxaparin 40 MG/0.4 ML SYRINGE SQ SCH (04:47)
[2020-09-08 05:50] LABS: Hematocrit 33.8 % (37.5-50.1); Mean Corpuscular HGB Conc 32.5 g/dL (31.6-35.5); Mean Corpuscular Volume 95.2 fL (83.0-100.0); Mean Platelet Volume 9.8 fL (9.4-12.4); Platelet Count 431 K/mcL (140-400); Red Blood Count 3.55 M/mcL (4.19-5.50); Red Cell Distribution Width 14.3 % (11.5-14.5); White Blood Count 12.4 K/mcL (4.3-11.1)
[2020-09-08 06:06] LABS: BUN/Creatinine Ratio 41 (6-26); Blood Urea Nitrogen 28 mg/dL (8-23); Calcium 8.6 mg/dL (8.6-10.3); Carbon Dioxide 31 mEq/L (23-29); Chloride 106 mEq/L (98-107); Glucose 99 mg/dL (70-105); Magnesium 1.9 mg/dL (1.6-2.6); Osmolality,Calculated 298 (280-300); Potassium 3.7 mEq/L (3.5-5.1); Sodium 141 mEq/L (136-145); eGFR For African Americans > 60 (> 60); eGFR For Non-African Americans > 60 (> 60)
[2020-09-08] MEDS: Cholecalciferol (D-3) 1,000 UNIT (25MCG) TABLET PO SCH (08:31)
[2020-09-08] MEDS: Furosemide 40 MG TABLET PO SCH (08:31)
[2020-09-08] MEDS: Aspirin 325 MG TABLET PO SCH (08:31)
[2020-09-08] MEDS: Multivit/Ca/Min/Fe/FA 1 TAB TABLET PO SCH (08:31)
[2020-09-08] MEDS: Acetaminophen 325 MG TABLET PO PRN ×3 (08:32→20:43)
[2020-09-08] MEDS: hydrALAZINE 10 MG TABLET PO SCH ×3 (08:32→20:43)
[2020-09-08] MEDS ORDERED: Bisacodyl 10 MG RECTAL SUPPOSITORY RC PRN (15:47)
[2020-09-08] MEDS: Sennosides 8.6 MG TABLET PO SCH (20:44)
[2020-09-09] MEDS: *HR* Enoxaparin 40 MG/0.4 ML SYRINGE SQ SCH (06:21)
[2020-09-09] MEDS: Sennosides 8.6 MG TABLET PO SCH (07:58)
[2020-09-09] MEDS: Cholecalciferol (D-3) 1,000 UNIT (25MCG) TABLET PO SCH (07:58)
[2020-09-09] MEDS: Aspirin 325 MG TABLET PO SCH (07:58)
[2020-09-09] MEDS: Multivit/Ca/Min/Fe/FA 1 TAB TABLET PO SCH (07:58)
[2020-09-09] MEDS: Furosemide 40 MG TABLET PO SCH (07:58)
[2020-09-09] MEDS: hydrALAZINE 10 MG TABLET PO SCH (07:59)
[2020-09-09 09:32] VITALS: BP 151/67
== END 2020-09-09 13:22 | disposition home health service (06) | DRG 949 ==
LOC: INPGRE 19:25
PROVIDERS: ADMIT Family Medicine; ATTEND Family Medicine

== ENCOUNTER 2021-11-19 10:12 | Inpatient (IN) ==
[2021-11-19] MEDS ORDERED: 0.9 % Sodium Chloride 1,000 ML IVC ONE ×2 (10:47)
[2021-11-19 10:52] LABS: Basophils # 0.2 K/mcL (0.0-0.2); Basophils % 0.9 %; Eosinophils # 0.2 K/mcL (0.0-0.6); Eosinophils % 0.9 %; Hematocrit 44.1 % (37.5-50.1); Hemoglobin 14.6 g/dL (12.9-16.9); Immature Granulocytes % 0.7 % (0-4); Lymphocytes % 15.9 %; Mean Corpuscular HGB Conc 33.1 g/dL (31.6-35.5); Mean Corpuscular Hemoglobin 31.6 pg (28.0-33.3); Mean Corpuscular Volume 95.5 fL (83.0-100.0); Mean Platelet Volume 10.1 fL (9.4-12.4); Monocytes # 0.7 K/mcL (0.0-1.3); Monocytes % 3.6 %; Neutrophils # 14.9 K/mcL (1.6-8.9); Platelet Count 458 K/mcL (140-400); Red Blood Count 4.62 M/mcL (4.19-5.50); Red Cell Distribution Width 15.6 % (11.5-14.5); White Blood Count 19.1 K/mcL (4.3-11.1)
[2021-11-19 10:58] LABS: VBG HCO3 13 mEq/L (21-27); VBG PCO2 24 mmHg (41-51); VBG PH 7.32 pH Units (7.32-7.42); VBG PO2 98 mmHg (25-50)
[2021-11-19 11:01] LABS: INR 0.9; Prothrombin Time 10.1 Seconds (9.4-12.1)
[2021-11-19 11:04] LABS: Activated Partial Thrombo Time 22.5 Seconds (26.0-36.0)
[2021-11-19 11:31] LABS: Potassium 5.8 mEq/L (3.5-5.1)
[2021-11-19 11:32] LABS: Albumin 3.7 g/dL (3.5-5.7); Albumin/Globulin Ratio 1.4 (1.1-2.2); Bilirubin,Total 0.7 mg/dL (0.3-1.0); Calcium 9.3 mg/dL (8.6-10.3); Globulin 2.7 g/dL (2.4-3.5); Magnesium 2.8 mg/dL (1.6-2.6); Phosphorous 5.5 mg/dL (2.7-4.5); Total Protein 6.4 g/dL (6.4-8.9)
[2021-11-19] MEDS ORDERED: 0.9 % Sodium Chloride 1,000 ML IVC SCH (14:00)
[2021-11-19] MEDS: 0.9 % Sodium Chloride 1,000 ML IVC ONE ×2 (14:05→14:39)
[2021-11-19 16:33] LABS: Calcium 8.5 mg/dL (8.6-10.3)
[2021-11-19] MEDS: Azithromycin 500 MG in 0.9 % Sodium Chloride 250 ML IVPB SCH (16:38)
[2021-11-19] MEDS: MethylPREDNISolone 40 MG/ML VIAL IVP SCH (16:43)
[2021-11-19] MEDS: 0.9 % Sodium Chloride 1,000 ML IVC SCH (19:49)
[2021-11-20] MEDS: MethylPREDNISolone 40 MG/ML VIAL IVP SCH ×3 (01:10→15:38)
[2021-11-20 02:57] LABS: Bilirubin,Urine Small (Negative); Blood,Urine Negative (Negative); Clarity,Urine Clear (Clear); Color,Urine Yellow (Yellow); Glucose,Urine (UA) Normal (Normal); Ketones,Urine Trace mg/dL (Negative); Leukocyte Esterase,Urine Negative (Negative); Nitrite,Urine Negative (Negative); Protein,Urine Negative (Neg-Trace); Urobilinogen,Urine Normal (Normal)
[2021-11-20 05:02] LABS: Basophils % 0.1 %; Hematocrit 39.9 % (37.5-50.1); Hemoglobin 13.2 g/dL (12.9-16.9); Immature Granulocytes % 0.7 % (0-4); Lymphocytes # 0.8 K/mcL (0.6-4.6); Lymphocytes % 6.1 %; Mean Corpuscular HGB Conc 33.1 g/dL (31.6-35.5); Mean Corpuscular Hemoglobin 31.5 pg (28.0-33.3); Mean Corpuscular Volume 95.2 fL (83.0-100.0); Mean Platelet Volume 10.1 fL (9.4-12.4); Monocytes # 0.1 K/mcL (0.0-1.3); Monocytes % 0.6 %; Neutrophils # 12.5 K/mcL (1.6-8.9); Platelet Count 411 K/mcL (140-400); Red Blood Count 4.19 M/mcL (4.19-5.50); Red Cell Distribution Width 15.9 % (11.5-14.5); Segmented Neutrophils % 92.5 %; White Blood Count 13.5 K/mcL (4.3-11.1)
[2021-11-20 05:20] LABS: Albumin 3.4 g/dL (3.5-5.7); Albumin/Globulin Ratio 1.4 (1.1-2.2); Bilirubin,Total 0.5 mg/dL (0.3-1.0); Calcium 8.2 mg/dL (8.6-10.3); Globulin 2.5 g/dL (2.4-3.5); Magnesium 2.3 mg/dL (1.6-2.6); Total Protein 5.9 g/dL (6.4-8.9)
[2021-11-20] MEDS ORDERED: Furosemide 40 MG TABLET PO SCH (09:00)
[2021-11-20] MEDS: 0.9 % Sodium Chloride 1,000 ML IVC SCH ×2 (09:30→23:58)
[2021-11-20] MEDS: Multivit/Ca/Min/Fe/FA 1 TAB TABLET PO SCH (09:30)
[2021-11-20] MEDS ORDERED: Acetaminophen 325 MG TABLET PO PRN (09:45)
[2021-11-20] MEDS: *HR* Heparin 5,000 UNIT/ML VIAL SQ SCH ×3 (11:17→19:55)
[2021-11-20] MEDS: Azithromycin 500 MG in 0.9 % Sodium Chloride 250 ML IVPB SCH (15:39)
[2021-11-21] MEDS: Ipratropium/Albuterol Neb 3 ML IH PRN (00:22)
[2021-11-21] MEDS: MethylPREDNISolone 40 MG/ML VIAL IVP SCH (00:25)
[2021-11-21 04:32] LABS: Hematocrit 37.5 % (37.5-50.1); Hemoglobin 12.8 g/dL (12.9-16.9); Mean Corpuscular HGB Conc 34.1 g/dL (31.6-35.5); Mean Corpuscular Hemoglobin 31.7 pg (28.0-33.3); Mean Corpuscular Volume 92.8 fL (83.0-100.0); Mean Platelet Volume 10.1 fL (9.4-12.4); Platelet Count 366 K/mcL (140-400); Red Blood Count 4.04 M/mcL (4.19-5.50); Red Cell Distribution Width 15.7 % (11.5-14.5); White Blood Count 24.9 K/mcL (4.3-11.1)
[2021-11-21 04:42] LABS: Calcium 8.2 mg/dL (8.6-10.3); Potassium 4.2 mEq/L (3.5-5.1)
[2021-11-21] MEDS: *HR* Heparin 5,000 UNIT/ML VIAL SQ SCH ×3 (05:12→22:46)
[2021-11-21] MEDS: 0.9 % Sodium Chloride 1,000 ML IVC SCH (05:14)
[2021-11-21] MEDS: Multivit/Ca/Min/Fe/FA 1 TAB TABLET PO SCH (07:57)
[2021-11-21] MEDS: Doxycycline 100 MG in 0.9 % Sodium Chloride Mini Bag 100 ML IVPB SCH ×2 (07:59→16:26)
[2021-11-21] MEDS: Aspirin Enteric Coated 81 MG Tablet PO SCH (11:20)
[2021-11-21] MEDS: Nicotine 14 MG PATCH.TD24 TD SCH (14:34)
[2021-11-22] MEDS: *HR* Heparin 5,000 UNIT/ML VIAL SQ SCH (05:24)
[2021-11-22] MEDS: Doxycycline 100 MG in 0.9 % Sodium Chloride Mini Bag 100 ML IVPB SCH (05:24)
[2021-11-22] MEDS: Multivit/Ca/Min/Fe/FA 1 TAB TABLET PO SCH (08:33)
[2021-11-22] MEDS: Aspirin Enteric Coated 81 MG Tablet PO SCH (08:34)
[2021-11-22] MEDS: Nicotine 14 MG PATCH.TD24 TD SCH (08:34)
[2021-11-22] MEDS: Ipratropium/Albuterol Neb 3 ML IH PRN (08:49)
[2021-11-22 10:39] LABS: Basophils % 0.1 %; Eosinophils % 0.2 %; Hematocrit 34.7 % (37.5-50.1); Hemoglobin 11.7 g/dL (12.9-16.9); Immature Granulocytes % 0.7 % (0-4); Lymphocytes # 3.1 K/mcL (0.6-4.6); Lymphocytes % 19.2 %; Mean Corpuscular HGB Conc 33.7 g/dL (31.6-35.5); Mean Corpuscular Volume 94.8 fL (83.0-100.0); Mean Platelet Volume 10.4 fL (9.4-12.4); Monocytes # 0.7 K/mcL (0.0-1.3); Monocytes % 4.3 %; Nucleated Red Blood Cells 0.2 /100 WBC (0); Platelet Count 328 K/mcL (140-400); Red Blood Count 3.66 M/mcL (4.19-5.50); Red Cell Distribution Width 16.2 % (11.5-14.5); Segmented Neutrophils % 75.5 %; White Blood Count 16.1 K/mcL (4.3-11.1)
[2021-11-22 10:43] LABS: Neutrophils # 12.2 K/mcL (1.6-8.9)
[2021-11-22 11:10] LABS: Calcium 8.2 mg/dL (8.6-10.3); Potassium 3.7 mEq/L (3.5-5.1)
[2021-11-22 11:26] VITALS: BP 111/70; PULSE 55; RESP 16; TEMP 97.7; O2SAT 97
== END 2021-11-22 13:45 | DRG 191 ==
LOC: EMEROOGRE 10:12 → INPGRE 10:12
PROVIDERS: ADMIT Family Medicine; ATTEND Family Medicine